=== PATIENT | female | born 2000 | race Caucasian/White ===

== ENCOUNTER → 2022-02-21 | Outpatient (CLI) | payer OTHER ==
--- NOTE | 2022-02-23 14:26 | RAD ---
Two-view chest dated 02/23/2022 2:23 PM Comparison: None CLINICAL INDICATION: Possible tuberculosis. FINDINGS: PA and lateral views obtained. Heart and mediastinal contours within normal limits. Lungs are clear. No consolidation or pleural effusion. No pneumothorax. IMPRESSION: No acute radiographic abnormality. Electronically signed by: Ash Diez MD (02/23/2022 2:24 PM) [id number]
== END ==
LOC: RAD 16:19
PROVIDERS: ATTEND Ophthalmology
DX: H44.113 Panuveitis, bilateral (principal)
CPT/HCPCS: 71046